=== PATIENT | female | born 1955 | race Caucasian/White ===

== ENCOUNTER 2017-12-10 17:21 | Emergency (ER) | payer OTHER ==
--- NOTE | 2017-12-10 18:11 | ERPHSYRPT ---
- History of Present Illness Source: patient Exam Limitations: no limitations Patient Subjective Stated Complaint: pt here for increase sob for alomost 2 months, loosing wt, cough, ,no fevers,has been seen in [place] and had cxr and us of heart done but does not know results, skellyn states now she is weak Triage Nursing Assessment: pt alert, resp easy, skin w/d/p. chest clear, diminished bs, no swelling to legs, apppears weak Timing/Duration: other (symptoms for 2 months) Severity: moderate Modifying Factors: Improves With: nothing Associated Symptoms: shortness of breath, cough, loss of appetite, malaise, No nausea, No vomiting, No abdominal pain, No heartburn, No diaphoresis, No chills , No chest pain, No fever, No headaches, No rash, No syncope, No seizure, No weakness Hx Influenza Vaccination/Date Given: No Hx Pneumococcal Vaccination/Date Given: No Immunizations Up to Date: Yes <CHETAN NO - Last Filed: 12/10/17 19:12> <ИВАН WEST - Last Filed: 12/10/17 21:12> - History of Present Illness Time Seen by Provider: 12/10/17 18:00 Physician History: 62-year-old white female who states she does not have a significant past medical history. Arrives with complaint of shortness of breath cough, feels like she is losing weight symptoms for one month. Patient apparently has been seen and floor for the same she states she feels weak. Past medical history includes hysterectomy, Social history former smoker (CHETAN NO) The patient is a 62-year-old female with her daughter visiting here from [place] complaining that she she developed a cough and cold on Memorial weekend while in [place] at her house boat. The cough has proceeded into a dry cough. She now is very tired and lacks energy that she normally has. She denies fever or chills. She typically is a very active woman and no longer can do her normal activities. She was seen by her primary medical doctor in [place] where a chest x-ray was done. She states that they did an ultrasound of her mid chest and upper abdomen as well. She tried to obtain the results today but was unable to get the results from her doctor's office. She is very concerned that she is so tired and wants some "answers". Her past medical history is significant only for taking Premarin post hysterectomy. She has had 2 C- sections. (ИВАН WEST) Allergies/Adverse Reactions: No Known Drug Allergies Allergy (Unverified 12/10/17 17:46) Home Medications: Estrogens,Conjugated [Premarin] 1.25 mg PO DAILY 12/10/17 [History] - Review of Systems Constitutional: Fatigue, Weakness, Weight Loss Eyes: No Symptoms Ears, Nose, & Throat: No Symptoms Respiratory: Cough, Dyspnea, No Cyanosis, No Dyspnea on Exertion (MORENO), No Stridor, No Wheezing Cardiac: No Chest Pain, No Edema, No Syncope Abdominal/Gastrointestinal: No Abdominal Pain, No Nausea, No Vomiting, No Diarrhea Genitourinary Symptoms: No Dysuria Musculoskeletal: No Back Pain, No Neck Pain Skin: No Rash Neurological: No Dizziness, No Focal Weakness, No Sensory Changes Psychological: No Symptoms Endocrine: No Symptoms All Other Systems: Reviewed and Negative <CHETAN NO - Last Filed: 12/10/17 19:12> - Past Medical History Pertinent Past Medical History: No - Past Surgical History Past Surgical History: Yes Female Surgical History: Hysterectomy, Section - Social History Smoking Status: Former smoker Exposure to second hand smoke: No Drug Use: none Patient Lives Alone: No - Female History Hx Last Menstrual Period: post Hx Now: No <CHETAN NO - Last Filed: 12/10/17 19:12> - Physical Exam General Appearance: no apparent distress, alert Eye Exam: PERRL/EOMI, eyes nml inspection Ears, Nose, Throat Exam: normal ENT inspection, TMs normal, pharynx normal, moist mucous membranes Neck Exam: normal inspection, non-tender, supple, full range of motion Respiratory Exam: normal breath sounds, lungs clear, No respiratory distress Cardiovascular Exam: regular rate/rhythm, normal heart sounds, normal peripheral pulses Gastrointestinal/Abdomen Exam: soft, normal bowel sounds, No tenderness, No mass Back Exam: normal inspection, normal range of motion, No CVA tenderness, No vertebral tenderness Extremity Exam: normal inspection, normal range of motion, pelvis stable Neurologic Exam: alert, oriented x 3, cooperative, town manager II-XII nml as tested, normal mood/affect, nml cerebellar function, nml station & gait, sensation nml, No motor deficits Skin Exam: normal color, warm, dry, No rash Lymphatic Exam: No adenopathy SpO2 Interpretation: normal (97%) SpO2: 97 Oxygen Delivery: Room Air <CHETAN NO - Last Filed: 12/10/17 19:12> - Physical Exam Pelvic Exam: not done Rectal Exam: not done <ИВАН WEST - Last Filed: 12/10/17 21:12> - Nursing Vital Signs Nursing Vital Signs: Initial Vital Signs Temperature 97.7 F 12/10/17 17:33 Pulse Rate 62 12/10/17 17:33 Respiratory Rate 18 12/10/17 17:33 Blood Pressure 131/84 12/10/17 17:33 O2 Sat by Pulse Oximetry 97 12/10/17 17:33 Pain Scale Pain Intensity 0 - Course EKG Interpreted by Me: RATE, Sinus Rhythm, NORMAL AXIS, NORMAL INTERVALS, NORMAL QRS, NORMAL ST-T - Radiology Exams Chest X-ray Interpretation: Interpreted by me, Negative <ИВАН WEST - Last Filed: 12/10/17 21:12> Ordered Tests: Active Orders 24 hr Category Date Time Status Career Development Facilitator STAT Care 12/10/17 18:07 Active EKG-ER Only STAT Care 12/10/17 18:06 Active IV Insertion STAT Care 12/10/17 18:06 Active CHEST 1 VIEW (PORTABLE) Stat Exams 12/10/17 18:08 Taken CBC W DIFF Stat Lab 12/10/17 18:30 Completed CMP Stat Lab 12/10/17 18:30 Completed D-DIMER QUANTITATION Stat Lab 12/10/17 18:30 Completed Lactic Acid Stat Lab 12/10/17 18:35 Completed NT PRO BNP Stat Lab 12/10/17 18:30 Completed TROPONIN Q3H Lab 12/10/17 18:30 Completed TROPONIN Q3H Lab 12/10/17 21:15 Ordered TROPONIN Q3H Lab 12/11/17 00:15 Ordered TROPONIN Q3H Lab 12/11/17 03:15 Ordered TROPONIN Q3H Lab 12/11/17 06:15 Ordered TSH [TSH, 3RD Generation] Stat Lab 12/10/17 Completed UA W/RFX UR CULTURE Stat Lab 12/10/17 18:48 Completed VENOUS BLOOD GAS Stat Lab 12/10/17 18:35 Completed Medication Summary Generic Name Dose Route Start Last Admin Trade Name Freq PRN Reason Stop Dose Admin Sodium Chloride 1,000 mls @ 100 mls/hr 12/10/17 18:15 12/10/17 18:46 Sodium Chloride 0.9% 1000 Ml IV 01/09/18 18:14 100 mls/hr .Q10H MARGARET Administration Lab/Rad Data: Laboratory Result Diagrams 12/10/17 18:30 12/10/17 18:30 Laboratory Results 12/10/17 12/10/17 12/10/17 Range/Units Unknown 18:48 18:35 WBC (4.0-10.5) K/mm3 RBC (4.1-5.4) M/mm3 Hgb (12.0-16.0) gm/dl Hct (35-47) % MCV (78-100) fl MCH (26-32) pg MCHC (32-36) g/dl RDW (11.5-14.0) % Plt Count (150-450) K/mm3 MPV (6-9.5) fl Gran % (36.0-66.0) % Eos # (Auto) (0-0.5) Absolute Lymphs (auto) (1.0-4.6) Absolute Monos (auto) (0.0-1.3) Lymphocytes % (24.0-44.0) % Monocytes % (0.0-12.0) % Eosinophils % (0.00-5.0) % Basophils % (0.0-0.4) % Absolute Granulocytes (1.4-6.9) Basophils # (0-0.4) D-Dimer (215-500) ng/mL pO2/FiO2 Ratio 21.0 % VBG pH 7.39 (7.32-7.42) VBG pCO2 at Pat Temp 51 (42-55) mm/Hg VBG pO2 at Pat Temp 16 L (25-40) mm/Hg VBG HCO3 30.9 H* (22-28) meq/L VBG O2 Sat (Gisela) 31.3 L (95-100) VBG Base Excess 4.7 H (-2.0-2.0) VBG Hemoglobin 14.0 VBG Carboxyhemoglobin 1.9 (0.0-6.9) % T HGB POC Potassium 4.1 (3.5-5.1) Sodium (137-145) mmol/L Potassium (3.5-5.1) mmol/L Chloride (98-107) mmol/L Carbon Dioxide (22-30) mmol/L Anion Gap (5-15) MEQ/L BUN (7-17) mg/dL Creatinine (0.52-1.04) mg/dL Estimated GFR ML/MIN Glucose (74-106) mg/dL Lactic Acid 0.8 (0.4-2.0) Calcium (8.4-10.2) mg/dL Total Bilirubin (0.2-1.3) mg/dL AST (14-36) U/L ALT (0-35) U/L Alkaline Phosphatase (38-126) U/L Troponin I (0.000-0.034) ng/mL NT-Pro-B Natriuret Pep (0-900) pg/mL Serum Total Protein (6.3-8.2) g/dL Albumin (3.5-5.0) g/dL TSH 3rd Generation 2.750 (0.47-4.68) mIU/L Ur Collection Type VOID Urine Color LT.YELLOW (YELLOW) Urine Appearance CLEAR (CLEAR) Urine pH 5.0 (5-6) Ur Specific [place] 1.015 (1.005-1.025) Urine Protein NEGATIVE (Negative) Urine Ketones NEGATIVE (NEGATIVE) Urine Blood NEGATIVE (0-5) Meet/ul Urine Nitrite NEGATIVE (NEGATIVE) Urine Bilirubin NEGATIVE (NEGATIVE) Urine Urobilinogen NORMAL (0-1) mg/dL Ur Leukocyte Esterase NEGATIVE (NEGATIVE) Urine Culture Reflexed NO (NO) Urine Glucose NEGATIVE (NEGATIVE) mg/dL Specimen Received 12/10/17194412/10/17 12/10/17 12/10/17 Range/Units 18:30 18:30 18:30 WBC (4.0-10.5) K/mm3 RBC (4.1-5.4) M/mm3 Hgb (12.0-16.0) gm/dl Hct (35-47) % MCV (78-100) fl MCH (26-32) pg MCHC (32-36) g/dl RDW (11.5-14.0) % Plt Count (150-450) K/mm3 MPV (6-9.5) fl Gran % (36.0-66.0) % Eos # (Auto) (0-0.5) Absolute Lymphs (auto) (1.0-4.6) Absolute Monos (auto) (0.0-1.3) Lymphocytes % (24.0-44.0) % Monocytes % (0.0-12.0) % Eosinophils % (0.00-5.0) % Basophils % (0.0-0.4) % Absolute Granulocytes (1.4-6.9) Basophils # (0-0.4) D-Dimer < 215 L (215-500) ng/mL pO2/FiO2 Ratio % VBG pH (7.32-7.42) VBG pCO2 at Pat Temp (42-55) mm/Hg VBG pO2 at Pat Temp (25-40) mm/Hg VBG HCO3 (22-28) meq/L VBG O2 Sat (Gisela) (95-100) VBG Base Excess (-2.0-2.0) VBG Hemoglobin VBG Carboxyhemoglobin (0.0-6.9) % T HGB POC Potassium (3.5-5.1) Sodium 142 (137-145) mmol/L Potassium 4.5 (3.5-5.1) mmol/L Chloride 104 (98-107) mmol/L Carbon Dioxide 30 (22-30) mmol/L Anion Gap 12.3 (5-15) MEQ/L BUN 19 H (7-17) mg/dL Creatinine 0.83 (0.52-1.04) mg/dL Estimated GFR > 60.0 ML/MIN Glucose 100 (74-106) mg/dL Lactic Acid (0.4-2.0) Calcium 9.8 (8.4-10.2) mg/dL Total Bilirubin 0.50 (0.2-1.3) mg/dL AST 23 (14-36) U/L ALT 21 (0-35) U/L Alkaline Phosphatase 84 (38-126) U/L Troponin I < 0.012 (0.000-0.034) ng/mL NT-Pro-B Natriuret Pep 137 (0-900) pg/mL Serum Total Protein 7.5 (6.3-8.2) g/dL Albumin 4.7 (3.5-5.0) g/dL TSH 3rd Generation (0.47-4.68) mIU/L Ur Collection Type Urine Color (YELLOW) Urine Appearance (CLEAR) Urine pH (5-6) Ur Specific [place] (1.005-1.025) Urine Protein (Negative) Urine Ketones (NEGATIVE) Urine Blood (0-5) Meet/ul Urine Nitrite (NEGATIVE) Urine Bilirubin (NEGATIVE) Urine Urobilinogen (0-1) mg/dL Ur Leukocyte Esterase (NEGATIVE) Urine Culture Reflexed (NO) Urine Glucose (NEGATIVE) mg/dL Specimen Received 12/10/17 Range/Units 18:30 WBC 4.5 (4.0-10.5) K/mm3 RBC 4.48 (4.1-5.4) M/mm3 Hgb 13.9 (12.0-16.0) gm/dl Hct 40.1 (35-47) % MCV 89.5 (78-100) fl MCH 31.0 (26-32) pg MCHC 34.7 (32-36) g/dl RDW 12.3 (11.5-14.0) % Plt Count 235 (150-450) K/mm3 MPV 9.4 (6-9.5) fl Gran % 44.7 (36.0-66.0) % Eos # (Auto) 0.13 (0-0.5) Absolute Lymphs (auto) 1.84 (1.0-4.6) Absolute Monos (auto) 0.51 (0.0-1.3) Lymphocytes % 40.7 (24.0-44.0) % Monocytes % 11.3 (0.0-12.0) % Eosinophils % 2.9 (0.00-5.0) % Basophils % 0.4 (0.0-0.4) % Absolute Granulocytes 2.02 (1.4-6.9) Basophils # 0.02 (0-0.4) D-Dimer (215-500) ng/mL pO2/FiO2 Ratio % VBG pH (7.32-7.42) VBG pCO2 at Pat Temp (42-55) mm/Hg VBG pO2 at Pat Temp (25-40) mm/Hg VBG HCO3 (22-28) meq/L VBG O2 Sat (Gisela) (95-100) VBG Base Excess (-2.0-2.0) VBG Hemoglobin VBG Carboxyhemoglobin (0.0-6.9) % T HGB POC Potassium (3.5-5.1) Sodium (137-145) mmol/L Potassium (3.5-5.1) mmol/L Chloride (98-107) mmol/L Carbon Dioxide (22-30) mmol/L Anion Gap (5-15) MEQ/L BUN (7-17) mg/dL Creatinine (0.52-1.04) mg/dL Estimated GFR ML/MIN Glucose (74-106) mg/dL Lactic Acid (0.4-2.0) Calcium (8.4-10.2) mg/dL Total Bilirubin (0.2-1.3) mg/dL AST (14-36) U/L ALT (0-35) U/L Alkaline Phosphatase (38-126) U/L Troponin I (0.000-0.034) ng/mL NT-Pro-B Natriuret Pep (0-900) pg/mL Serum Total Protein (6.3-8.2) g/dL Albumin (3.5-5.0) g/dL TSH 3rd Generation (0.47-4.68) mIU/L Ur Collection Type Urine Color (YELLOW) Urine Appearance (CLEAR) Urine pH (5-6) Ur Specific [place] (1.005-1.025) Urine Protein (Negative) Urine Ketones (NEGATIVE) Urine Blood (0-5) Meet/ul Urine Nitrite (NEGATIVE) Urine Bilirubin (NEGATIVE) Urine Urobilinogen (0-1) mg/dL Ur Leukocyte Esterase (NEGATIVE) Urine Culture Reflexed (NO) Urine Glucose (NEGATIVE) mg/dL Specimen Received - Progress Progress: improved <CHETAN NO - Last Filed: 12/10/17 19:12> - Progress Counseled pt/family regarding: lab results, diagnosis, need for follow-up, rad results <ИВАН WEST - Last Filed: 12/10/17 21:12> - Progress Progress Note: 12/10/17 19:08 Patient's case will be transferred to Dr. West secondary to shift change, I've discussed the case with Dr. West (CHETAN NO) 12/10/17 19:13 Pt care discussed and care accepted from Dr No at 19:00. (ИВАН WEST) <CHETAN NO - Last Filed: 12/10/17 19:12> - Departure Time of Disposition: 21:09 Departure Disposition: Home Critical Care Time: No <ИВАН WEST - Last Filed: 12/10/17 21:12> - Departure Clinical Impression: Cough, Fatigue Condition: Stable Referrals: DOCTOR,NO FAMILY [Primary Care Provider] - Additional Instructions: You have fatigue and a cough. Your chest x-ray was negative. All of your lab results including your urinalysis were normal. Your EKG was normal. You were given Rocephin 1 g and fluids by IV in the ER. Take ciprofloxacin 500 mg 2 times a day for 10 days. Follow-up with your primary medical doctor. Prescriptions: Ciprofloxacin [Cipro 500 MG] 1 tab PO BID #20 tablet
[2017-12-10] MEDS ORDERED: Sodium Chloride 0.9% 1000 ML 1,000 ML IV SCH (18:15)
[2017-12-10 18:34] LABS: BASOPHIL % 0.4 % (0.0-0.4); Basophil (Absolute #) 0.02 (0-0.4); Eosinophil % 2.9 % (0.00-5.0); Eosinophil (Absolute #) 0.13 (0-0.5); Granulocyte Absolute (ANC) 2.02 (1.4-6.9); Granulocytes % 44.7 % (36.0-66.0); Hematocrit 40.1 % (35-47); Hemoglobin 13.9 gm/dl (12.0-16.0); Lymphocyte (Absolute #) 1.84 (1.0-4.6); Lymphocytes % 40.7 % (24.0-44.0); Mean Cell Volume 89.5 fl (78-100); Mean Corpuscular Hgb Concent. 34.7 g/dl (32-36); Mean Platelet Volume 9.4 fl (6-9.5); Monocyte (Absolute #) 0.51 (0.0-1.3); Monocytes % 11.3 % (0.0-12.0); Platelet Count 235 K/mm3 (150-450); Red Blood Count 4.48 M/mm3 (4.1-5.4); Red Cell Distribution Width 12.3 % (11.5-14.0); White Blood Count 4.5 K/mm3 (4.0-10.5)
[2017-12-10] MEDS ORDERED: Sodium Chloride 0.9% 1000 ML 1,000 ML ONE (18:41)
[2017-12-10 18:47] LABS: Lactic Acid 0.8 (0.4-2.0); VBG BASE EXCESS 4.7 (-2.0-2.0); VBG CARBOXYHEMOGLOBIN 1.9 % T HGB (0.0-6.9); VBG HCO3- 30.9 meq/L (22-28); VBG O2 SATURATION 31.3 (95-100); VBG POTASSIUM 4.1 (3.5-5.1); VBG pH 7.39 (7.32-7.42)
[2017-12-10 18:55] LABS: ALBUMIN 4.7 g/dL (3.5-5.0); ALKALINE PHOSPHATASE 84 U/L (38-126); ANION GAP 12.3 MEQ/L (5-15); BLOOD UREA NITROGEN 19 mg/dL (7-17); CHLORIDE 104 mmol/L (98-107); Calcium 9.8 mg/dL (8.4-10.2); Carbon Dioxide 30 mmol/L (22-30); Creatinine 1 0.83 mg/dL (0.52-1.04); Glucose 100 mg/dL (74-106); Potassium 4.5 mmol/L (3.5-5.1); SGOT/AST 23 U/L (14-36); SGPT/ALT 21 U/L (0-35); SODIUM 142 mmol/L (137-145); Total Protein 7.5 g/dL (6.3-8.2)
[2017-12-10 19:04] LABS: NT PRO BNP 137 pg/mL (0-900)
[2017-12-10 19:59] LABS: Appearance CLEAR (CLEAR); Bilirubin NEGATIVE (NEGATIVE); Blood NEGATIVE Ery/ul (0-5); Glucose NEGATIVE (NEGATIVE); Ketones NEGATIVE (NEGATIVE); Leukocyte Esterase NEGATIVE (NEGATIVE); Nitrite NEGATIVE (NEGATIVE); Protein,Urine Dip NEGATIVE (Negative); Specific Gravity 1.015 (1.005-1.025); Urobilinogen NORMAL mg/dL (0-1)
[2017-12-10] MEDS ORDERED: ROCEPHIN 1 Gm-D5w 50 ml Bag** 1 G/50 ML IVPB IV STA (21:08)
[2017-12-10] MEDS ORDERED: ROCEPHIN 1 Gm-D5w 50 ml Bag** 1 G/50 ML IVPB IV ONE (21:16)
[2017-12-10 21:52] VITALS: BP 131/75; PULSE 58; O2SAT 98
--- NOTE | 2017-12-11 15:09 | XRAY ---
Exam: AP upright portable chest film from 12/10/2017. Comparison: None. Indication: Shortness of breath for about one month, dry cough. Findings: The lungs are well expanded. The heart size and contour are normal. The naldo and mediastinal structures appear unremarkable. I believe there is some minimal biapical pleural thickening/scarring. No air space infiltrates, vascular congestion, pneumothorax, or pleural effusion is seen. Very slight convexity of the mid thoracic spine toward the right is seen. No acute osseous process is seen. EKG leads are seen in place. Impression: 1. No infiltrates to suggest pneumonia or other acute cardiopulmonary disease is seen.
== END 2017-12-10 21:52 | disposition home or self-care (01) ==
LOC: ED 17:21
DX: R05 Cough (principal); R53.83 Other fatigue; R06.02 Shortness of breath; R53.1 Weakness
CPT/HCPCS: 36415; 71045; 80053; 81002; 82805; 83605; 83880; 84443; 84484; 85025; 85379; 93005; 93041; 96360; 96361; 96365; 96374; 99284; J0696